=== PATIENT | male | born 1960 | race Caucasian/White ===

== ENCOUNTER 2020-01-04 06:43 | Outpatient (CLI) | payer OTHER ==
[~2020-01-04] VITALS: Ht 170.2 cm; Wt 81.6 kg
[2020-01-04] VITALS (9 sets, daily range): BP systolic 111–145; BP diastolic 64–89
[2020-01-04] MEDS ORDERED: ASCO500C PO (07:28)
[2020-01-04] MEDS ORDERED: VITA400C37 PO (07:28)
[2020-01-04] MEDS ORDERED: MULT-245 PO (07:28)
[2020-01-04] MEDS ORDERED: ASPI-630 PO (07:28)
[2020-01-04] MEDS ORDERED: KRIL1CAP23 PO (07:28)
[2020-01-04] MEDS ORDERED: OMEP20CA16 PO (07:28)
[2020-01-04 07:29] LABS: HEMATOCRIT 44.4 % (39.0-53.0); HEMOGLOBIN 15.1 g/dL (13.0-17.5); RED BLOOD COUNT 5.21 x10^6/uL (4.30-5.70); RED CELL DISTRIBUTION WIDTH 14.4 % (11.5-14.5); WHITE BLOOD COUNT 5.5 x10^3/uL (4.0-11.0)
[2020-01-04] MEDS ORDERED: IODIXANOL 320 MG/ML 100 ML VIAL. ONE (07:37)
[2020-01-04] MEDS ORDERED: LIDOCAINE 1% PF 2 ML VIAL. ONE (07:37)
[2020-01-04 07:40] LABS: CALCIUM 8.8 mg/dL (8.5-10.1); CREATININE 0.8 mg/dL (0.7-1.3); GFR 98.6; POTASSIUM 3.9 mmol/L (3.5-5.1)
[2020-01-04 07:41] LABS: PROTHROMBIN TIME PATIENT 12.1 SEC (11.7-14.0)
[2020-01-04] MEDS ORDERED: VERAPAMIL 5 MG/2 ML VIAL. ONE (08:19)
[2020-01-04] MEDS ORDERED: NITROGLYCERIN 200 MCG/2 ML SYRINGE FOR CATH/VASC LAB. ONE (08:19)
[2020-01-04] MEDS ORDERED: fentaNYL PF VIAL 100 MCG/2 ML VIAL ONE (08:19)
[2020-01-04] MEDS ORDERED: HEPARIN for IV BOLUS 10,000 UNIT/10 ML VIAL. ONE (08:19)
[2020-01-04] MEDS ORDERED: MIDAZOLAM HCL/PF 2 MG/2 ML VIAL. ONE (08:19)
[2020-01-04] MEDS ORDERED: VERAPAMIL 5 MG/2 ML VIAL. IART ONE (09:00)
[2020-01-04] MEDS ORDERED: MIDAZOLAM HCL/PF 2 MG/2 ML VIAL. IV ONE (09:00)
[2020-01-04] MEDS ORDERED: CONTRAST GIVEN. MC PRN (09:00)
[2020-01-04] MEDS ORDERED: IODIXANOL 320 MG/ML 100 ML VIAL. IART ONE (09:00)
[2020-01-04] MEDS ORDERED: LIDOCAINE 1% PF 2 ML VIAL. INJ ONE (09:00)
[2020-01-04] MEDS ORDERED: NITROGLYCERIN 200 MCG/2 ML SYRINGE FOR CATH/VASC LAB. IART ONE ×2 (09:00)
[2020-01-04] MEDS ORDERED: HEPARIN for IV BOLUS 10,000 UNIT/10 ML VIAL. IART ONE (09:00)
[2020-01-04] MEDS ORDERED: fentaNYL PF VIAL 100 MCG/2 ML VIAL IV ONE (09:00)
[2020-01-04] MEDS ORDERED: IV 1/2 NORMAL SALINE 1,000 ML IV SCH (09:29)
--- NOTE | 2020-01-04 09:29 | PDOC ---
MODERATE SEDATION ASSESSMENT RISKS/ALTERNATIVES Risks/Alternatives Risks and alternatives of this type of sedation and procedure discussed with: RISK/ALTERNATIVES: Patient H & P ON CHART H & P H & P on chart and reviewed for co-morbid conditions and appropriate labs. H&P ON CHART: Yes STATUS PREG STATUS ASSESSED: N/A MEDS/ALLERGIES REVIEWED Meds/Allergies Reviewed Medications and Allergies including time and route of recently administered narcotics and sedatives. MEDS/ALLERGIES REVIEWED: Yes ASA RATING ASA RATING: II AIRWAY ASSESSMENT Airway Assessment Airway patency, oral function limitations, presence of caps, crowns, dentures, partials, and ability to extend neck assessed. AIRWAY ASSESSMENT: Yes MALLAMPATI SCORE MALLAMPATI SCORE: II PRE-SEDATION ASSESSMENT PRE-SEDATION ASSESSMENT: Yes VIPIN DOAN MD Jan 04, 2020 09:29
[2020-01-04] MEDS ORDERED: NITROGLYCERIN SUBLINGUAL 0.4 MG BOTTLE OF 25. SL PRN (09:30)
--- NOTE | 2020-01-04 09:55 | CARD ---
MR#: [id number] Date of Study: 01/04/2020 Ordering Physician: VIPIN ARRIOLA, Referring Physician: VIPIN ARRIOLA, Tech: Souleymane Mcmahon APPROVED REPORT Technologist: Souleymane Mcmahon Nurse: Kristel Casanova Procedure(s) performed: Left heart catheterization, selective coronary angiography and left ventricul ography via right transradial approach fl time: 7.9 min dose: 78 gy/cm2 contrast: 134 ml moderate sedation: 50 min INDICATION The indication(s) include : unstable angina . CSHA Clinical Frailty Scale CS Clinical Frailty Scale: Managing Well Heart Failure Heart Failure: No PROCEDURE NARRATIVE After explaining the risks, benefits and alternative options, informed consent was obtained from analy ent. Patient was brought to the cardiac Marine Equipment Design Engineer and right wrist was prepped and draped in the usual fashion after confirming a positive modified Papo's test. Arterial access was obtained in the righ t radial artery and a 6 [place] sheath was inserted. 6 [place] JL 3.5 and 6 [place] JR4 catheters were used to perform selective angiography of the left and right coronary arteries. 6 [place] pigtail cath eter was used to perform left ventriculography. Patient tolerated the procedure well. Hemostasis wa s achieved using TR band. There were no immediate complications. The following findings were noted. FINDINGS 1. Hemodynamics: Left ventricular end-diastolic pressure of 20 mmHg. No pullback gradient across th e aortic valve. 2. Left ventriculography: Normal left ventricle systolic function with ejection fraction estimated at 55-60%. No significant mitral regurgitation seen. 3. Coronary angiography: a. The left main coronary artery arose from the left sinus of Valsalva, gave rise to the left anteri or descending and left circumflex arteries and did not show any significant stenosis. b. The left anterior descending artery did not show any significant stenosis but showed sluggish [place] w suggestive of microvascular dysfunction. c. The left circumflex artery did not show any significant stenosis. d. The right coronary artery was a large and dominant vessel arising from the right sinus of Valsalv a that did not show any significant stenosis but showed sluggish flow suggestive of microvascular dys function. Conclusion 1. No significant for [place] artery stenosis. There was sluggish flow in LAD and RCA suggestive of yoel rovascular dysfunction. 2. Normal left ventricle systolic function with ejection fraction estimated at 55-60%. Signed by : Vipin Arriola, Electronically Approved : 01/04/2020 09:55:12
--- NOTE | 2020-01-04 11:42 | NUR ---
Discharge Note: [facility] Discharge instructions and discharge home medications reviewed with Patient and a copy given. All questions have been answered and understanding verbalized. The following instructions and handouts were given: moderate sedation and radial site care Discontinued lines and drains: Left FA PIV dcd. Patient discharged to home with private vehicle. Pt ambulated and tolerated PO
--- NOTE | 2020-01-04 11:52 | NUR ---
shadowing noted on radial dressing. Radial site dressing removed and changed. Will continue to monitor for 30 minutes
--- NOTE | 2020-01-04 12:17 | NUR ---
pt discharged to home. Dressing clean, dry, intact
== END 2020-01-04 12:18 | disposition home or self-care (01) ==
LOC: CCL 06:43
PROVIDERS: ATTEND Internal Medicine Cardiovascular Disease
DX: I20.0 Unstable angina (principal)
CPT/HCPCS: 36415; 80048; 85027; 85610; 93458; 99152; 99153; C1769; C1892; J1644; J2250; J3010; J3490; Q9967